=== PATIENT | female | born 1985 | race Hispanic/Latino ===

== ENCOUNTER 2021-08-27 19:01 | Emergency (ER) | payer MEDICAID, OTHER ==
[2021-08-27] MEDS ORDERED: HYDROcodone/Acetaminophen 10/325 mg Tablet ONE (19:56)
== END 2021-08-27 20:02 | disposition home or self-care (01) ==
LOC: CSHERS 19:01
DX: K04.7 Periapical abscess without sinus (principal); E03.9 Hypothyroidism, unspecified; Z79.899 Other long term (current) drug therapy
CPT/HCPCS: 99282

== ENCOUNTER 2021-11-03 17:26 | Inpatient (IN) | payer OTHER ==
[2021-11-03 17:58] VITALS: BMI 35.6
[2021-11-03 18:05] LABS: Fetal Membranes Rupture RUPTURE DETECTED (No Rupture)
[2021-11-03] MEDS ORDERED: HYDROcodone/Acetaminophen 5/325 mg Tablet PO PRN (19:11)
[2021-11-03] MEDS ORDERED: hydrALAZINE 20 MG/ML VIAL SLOW IVP PRN (19:11)
[2021-11-03] MEDS ORDERED: Misoprostol 200 MCG TAB PR PRN (19:11)
[2021-11-03] MEDS ORDERED: Diphenoxylate HCl/Atropine Tablet PO PRN ×2 (19:11)
[2021-11-03] MEDS ORDERED: Ondansetron PF 4 MG/2 ML Vial IVP PRN (19:11)
[2021-11-03] MEDS ORDERED: Ibuprofen 800 MG TAB PO PRN (19:11)
[2021-11-03] MEDS ORDERED: Methylergonovine 0.2 MG/ML VIAL IM PRN (19:11)
[2021-11-03] MEDS ORDERED: Acetaminophen 500 MG TAB PO PRN (19:11)
[2021-11-03] MEDS ORDERED: Lidocaine 1% (PF) 30 ML VIAL SC PRN (19:11)
[2021-11-03] MEDS ORDERED: Promethazine HCl 25 MG/ML VIAL IM PRN (19:11)
[2021-11-03] MEDS ORDERED: Butorphanol Tartrate 1 MG/ML VIAL SLOW IVP PRN (19:11)
[2021-11-03] MEDS ORDERED: Carboprost 250 MCG/ML AMP IM PRN (19:11)
[2021-11-03] MEDS ORDERED: Docusate 100 MG CAP PO PRN (19:11)
[2021-11-03] MEDS ORDERED: NS w/ Oxytocin 30 units 500 ML IV SCH ×2 (19:15)
[2021-11-03] MEDS ORDERED: Penicillin G Potassium 5 MILL.UNITS in Sodium Chloride 0.9% 100 ML IVPB SCH (19:15)
[2021-11-03 19:58] LABS: Hemoglobin 9.7 g/dL (12.0-15.5); Mean Corpuscular HGB CONC 32.1 g/dL (32.0-36.0); Mean Corpuscular Hemoglobin 26.1 pg (27.0-33.0); Mean Corpuscular Volume 81.2 fl (81.6-98.3); Mean Platelet Volume 11.1 fl (7.4-10.4); Platelet Count 226 10x3/uL (150-450); RBC Distribution Width 13.7 % (11.5-14.5); Red Blood Cell (RBC) Count 3.72 10x6/uL (3.90-5.03); White Blood Cell (WBC) Count 7.2 10x3/uL (3.5-10.5)
[2021-11-03 20:31] LABS: HBSAg Index 0.29 S/CO (0-0.99); Hep B Surf Ag Non-Reactive S/CO (NonReactive); Syphilis Antibody Nonreactive (Nonreactive); Syphilis Antibody Index 0.06 S/CO (<1.00 Non-Reactive)
[2021-11-03] MEDS: Lactated Ringer's 1,000 ML IV SCH (20:58)
[2021-11-03] MEDS ORDERED: Betamet Acet/Betamet Na Ph 30 MG/5 ML VIAL IM SCH (23:30)
[2021-11-03 23:39] LABS: SARS-CoV-2 NAA Rapid Test Not Detected (NotDetected)
[2021-11-04] MEDS: Penicillin G 2.5 MILL.units 2.5 MILL.UNITS in Premix Bag 1 BAG IVPB SCH ×5 (00:18→22:40)
[2021-11-04] MEDS ORDERED: Levothyroxine Sodium 100 MCG TAB PO SCH (07:30)
[2021-11-04] MEDS ORDERED: Misoprostol 100 MCG TAB ONE (10:07)
[2021-11-04] MEDS ORDERED: Terbutaline Sulfate 1 MG/ML VIAL ONE (11:06)
[2021-11-04] MEDS ORDERED: NS w/ Oxytocin 30 units 500 ML ONE (13:53)
[2021-11-04] MEDS ORDERED: Butorphanol Tartrate 1 MG/ML VIAL ONE (16:08)
[2021-11-04] MEDS ORDERED: Misoprostol 200 MCG TAB ONE (23:52)
[2021-11-04] MEDS ORDERED: Carboprost 250 MCG/ML AMP ONE (23:54)
[2021-11-04] MEDS ORDERED: Lidocaine 1% (PF) 30 ML VIAL ONE (23:54)
[2021-11-04] MEDS ORDERED: Methylergonovine 0.2 MG/ML VIAL ONE (23:54)
[2021-11-05] MEDS ORDERED: Ibuprofen 800 MG TAB PO PRN (02:01)
[2021-11-05] MEDS ORDERED: NS w/ Oxytocin 30 units 500 ML IV SCH (05:59)
[2021-11-05] MEDS ORDERED: Ondansetron PF 4 MG/2 ML Vial IVP PRN (05:59)
[2021-11-05] MEDS ORDERED: Measles/Mumps/Rubella 10 MCG/0.5 ML VIAL SC ONE (05:59)
[2021-11-05] MEDS ORDERED: Preparation H Ointment 28 GM TUBE PR PRN (05:59)
[2021-11-05] MEDS ORDERED: diphenhydrAMINE 25 MG CAP PO PRN (05:59)
[2021-11-05] MEDS ORDERED: Misoprostol 200 MCG TAB VAG PRN (05:59)
[2021-11-05] MEDS ORDERED: HYDROcodone/Acetaminophen 5/325 mg Tablet PO PRN (05:59)
[2021-11-05] MEDS ORDERED: Bisacodyl 10 MG SUPP PR PRN (05:59)
[2021-11-05] MEDS ORDERED: hydrALAZINE 20 MG/ML VIAL SLOW IVP PRN (05:59)
[2021-11-05] MEDS ORDERED: Methylergonovine 0.2 MG/ML VIAL IM PRN (05:59)
[2021-11-05] MEDS ORDERED: Boostrix 0.5 ML (Tdap) VIAL (>/=7 yrs of age) IM ONE (05:59)
[2021-11-05] MEDS ORDERED: Zolpidem Tartrate 5 MG TAB PO PRN (05:59)
[2021-11-05] MEDS ORDERED: Milk Of Magnesia 30 ML UDCUP PO PRN (05:59)
[2021-11-05] MEDS ORDERED: Lanolin Ointment 7 GM TUBE TOP PRN (05:59)
[2021-11-05] MEDS ORDERED: Benzocaine-Menthol 82.5 ML CAN TOP PRN (05:59)
[2021-11-05] MEDS ORDERED: Promethazine HCl 25 MG/ML VIAL IM PRN (05:59)
[2021-11-05] MEDS ORDERED: Varicella virus, LIVE 0.5 ML VIAL SC ONE (05:59)
[2021-11-05] MEDS: Ibuprofen 800 MG TAB PO SCH ×3 (06:09→21:13)
[2021-11-05] MEDS: Lactated Ringer's 1,000 ML IV SCH (07:30)
[2021-11-05] MEDS: Penicillin G 2.5 MILL.units 2.5 MILL.UNITS in Premix Bag 1 BAG IVPB SCH ×2 (07:30→07:31)
[2021-11-05] MEDS: Prenatal Vitamin 1 TAB PO SCH (08:17)
[2021-11-05] MEDS: Docusate 100 MG CAP PO SCH ×2 (08:17→21:13)
[2021-11-05] MEDS: Ferrous Sulfate 325 MG TAB PO SCH ×2 (08:18→17:17)
[2021-11-06] MEDS: Ibuprofen 800 MG TAB PO SCH ×3 (05:27→21:59)
[2021-11-06] MEDS: Levothyroxine Sodium 100 MCG TAB PO SCH (05:27)
[2021-11-06 06:00] LABS: Mean Corpuscular HGB CONC 31.4 g/dL (32.0-36.0); Mean Corpuscular Hemoglobin 25.9 pg (27.0-33.0); Mean Corpuscular Volume 82.5 fl (81.6-98.3); Mean Platelet Volume 10.7 fl (7.4-10.4); Platelet Count 229 10x3/uL (150-450); RBC Distribution Width 13.9 % (11.5-14.5); Red Blood Cell (RBC) Count 3.09 10x6/uL (3.90-5.03); White Blood Cell (WBC) Count 8.5 10x3/uL (3.5-10.5)
[2021-11-06] MEDS: Ferrous Sulfate 325 MG TAB PO SCH ×2 (08:13→17:34)
[2021-11-06] MEDS: Docusate 100 MG CAP PO SCH ×2 (08:13→21:59)
[2021-11-06] MEDS: Prenatal Vitamin 1 TAB PO SCH (08:14)
[2021-11-07] MEDS: Ibuprofen 800 MG TAB PO SCH ×2 (05:19→13:04)
[2021-11-07] MEDS: Levothyroxine Sodium 100 MCG TAB PO SCH (05:19)
[2021-11-07 05:22] VITALS: TEMP 97.7
[2021-11-07] MEDS: Prenatal Vitamin 1 TAB PO SCH (08:13)
[2021-11-07] MEDS: Ferrous Sulfate 325 MG TAB PO SCH (08:13)
[2021-11-07] MEDS: Docusate 100 MG CAP PO SCH (08:13)
[2021-11-07 08:19] VITALS: BP 115/66
== END 2021-11-07 16:15 | disposition home or self-care (01) | DRG 807 ==
LOC: CSHLD/OP 17:26 → CSHLD 18:25 → CSHPP 11-05 05:40
PROVIDERS: ADMIT Obstetrics & Gynecology; ATTEND Obstetrics & Gynecology
PROC: 10E0XZZ Delivery of Products of Conception, External Approach (ICD-10-PCS; principal; 2021-11-05)
PROC: 0HQ9XZZ Repair Perineum Skin, External Approach (ICD-10-PCS; 2021-11-05)
DX: O42.013 Preterm premature rupture of membranes, onset of labor within 24 hours of rupture, third trimester (principal); Z37.0 Single live birth; Z3A.35 35 weeks gestation of pregnancy; Z20.822 Contact with and (suspected) exposure to COVID-19; O76 Abnormality in fetal heart rate and rhythm complicating labor and delivery; O70.0 First degree perineal laceration during delivery
CPT/HCPCS: 36415; 76815; 84112; 85027; 86780; 86850; 86900; 86901; 87340; 88307; 99285; J0595; J0702; J2001; J2540; J3490; J7120; U0002